=== PATIENT | female | born 1965 | race Caucasian/White ===

== ENCOUNTER 2017-06-23 06:36 | Emergency (ER) | payer MEDICARE, MEDICAID ==
[~2017-06-23] VITALS: Ht 165.1 cm; Wt 136.1 kg
[~2017-06-23 06:36] MED LIST: ALBU8.5H5 INH; AMLO2.5T PO; AMLO5TAB4 PO; ASCO10004 PO; BIOT1TAB3 PO; BUPR150T73 PO; CALC-112 PO; DULO30CA2 PO; FLUT1POW2 INH; GABA-827 PO; GLUC1CAP18 PO; HYDR25CA PO; INSU100I18 SC; INSU100V8 SQ; INSU300I SC; LISI-170 PO; OMEP-110 PO; POTA25TA4 PO; ROSU20TA PO; TRAM-28 PO; [UNRECOGNIZED DRUG - CODE] PO
[2017-06-23 06:38] VITALS: BP 106/71
[2017-06-23] MEDS ORDERED: SODIUM CHLORIDE FLUSH 10ML SYR IVF ONE (08:00)
[2017-06-23] MEDS ORDERED: SODIUM CHLORIDE 0.9% 1,000ML IVBOLUS ONE (08:30)
[2017-06-23] MEDS ORDERED: CEFTRIAXONE PMX 1GM/50ML 50 ML IV ONE (09:00)
[2017-06-23] MEDS ORDERED: SODIUM CHLORIDE 0.9% 1,000 ML IV ONE (09:00)
[2017-06-23 09:04] LABS: BLOOD UREA NITROGEN 12 mg/dL (7-18)
[2017-06-23] MEDS ORDERED: CEFTRIAXONE 1,000 MG ONE (09:08)
[2017-06-23] MEDS ORDERED: CEFTRIAXONE 1,000 MG IM ONE (09:30)
== END 2017-06-23 09:45 | disposition home or self-care (01) ==
LOC: ED 08:48
DX: L03.116 Cellulitis of left lower limb (principal); R60.0 Localized edema; I10 Essential (primary) hypertension; M79.7 Fibromyalgia; J45.909 Unspecified asthma, uncomplicated; E66.01 Morbid (severe) obesity due to excess calories; E11.9 Type 2 diabetes mellitus without complications; Z86.711 Personal history of pulmonary embolism; Z98.890 Other specified postprocedural states; Z88.8 Allergy status to other drugs, medicaments and biological substances; Z88.1 Allergy status to other antibiotic agents; Z88.0 Allergy status to penicillin; Z88.2 Allergy status to sulfonamides; Z91.030 Bee allergy status
CPT/HCPCS: 36415; 80048; 82040; 84145; 85025; 93971; 96372; 99285; J0696

== ENCOUNTER 2019-10-19 05:51 | Emergency (ER) | payer MEDICARE, MEDICAID ==
[~2019-10-19] VITALS: Ht 162.6 cm; Wt 140.0 kg
[~2019-10-19 05:51] MED LIST changes: -AMLO2.5T PO; +AMLO2.5T5 PO; +METF-163 PO; -ROSU20TA PO; +ROSU20TA2 PO; -TRAM-28 PO; +TRAM-47 PO; -[UNRECOGNIZED DRUG - CODE] PO
[2019-10-19 06:39] LABS: RAPID INFLUENZA A Negative (Negative); RAPID INFLUENZA B Negative (Negative)
[2019-10-19 06:41] LABS: BASOPHILS # (AUTO) 0.03 x10^3/uL (0-0.1); BASOPHILS % (AUTO) 0 % (0-1); EOSINOPHILS # (AUTO) 0.07 x10^3/uL (0-0.4); EOSINOPHILS % (AUTO) 1 % (1-7); LYMPHOCYTES # (AUTO) 1.42 x10^3/uL (1-3.4); LYMPHOCYTES % (AUTO) 17 % (22-44); MD NO; MEAN CORPUSCULAR HGB CONC 32.8 g/dL (32.4-35.8); MEAN CORPUSCULAR VOLUME 85.4 fL (80-100); MONOCYTES # (AUTO) 0.72 x10^3/uL (0.2-0.8); MONOCYTES % (AUTO) 9 % (2-9); NEUTROPHILS # (AUTO) 5.94 x10^3/uL (1.8-6.8); NEUTROPHILS % (AUTO) 73 % (42-75); PLATELET COUNT 121 x10^3/uL (130-400); RED BLOOD COUNT 5.27 x10^6/uL (3.82-5.3); RED CELL DISTRIBUTION WIDTH 15.1 % (9.6-15.2)
[2019-10-19 06:53] LABS: ALANINE AMINOTRANSFERASE 95 U/L (12-78); ALBUMIN 3.3 g/dL (3.4-5.0); ANION GAP 7 mmol/L (5-15); CALCIUM 8.3 mg/dL (8.5-10.1); CHLORIDE 104 mmol/L (98-107)
[2019-10-19 06:56] LABS: ALKALINE PHOSPHATASE 91 U/L (45-117); CREATININE 0.95 mg/dL (0.55-1.02); TOTAL PROTEIN 7.2 g/dL (6.4-8.2)
--- NOTE | 2019-10-19 06:56 | NUR ---
REPORT TO SAGAR MCNALLY
--- NOTE | 2019-10-19 06:58 | NUR ---
REPORT RECEIVED FROM FAHAD MCNALLY.
--- NOTE | 2019-10-19 07:10 | NUR ---
PILLOW/WARM BLANCKET PROVIDED AT THIS TIME. PT REQUESTING SUPPLEMENTAL O2. PT PLACED 1L OXY BY NC AT THIS TIME PER PT'S REQUEST.
--- NOTE | 2019-10-19 07:49 | NUR ---
PIV EST ON R AC BY THIS RN FOR CTA.
--- NOTE | 2019-10-19 07:57 | NUR ---
PT TO CT NOW.
--- NOTE | 2019-10-19 08:14 | NUR ---
PT BACK TO ROOM FROM CT AT THIS TIME.
--- NOTE | 2019-10-19 08:48 | NUR ---
PT AMB TO BR WITH STEADY GAIT.
[2019-10-19] MEDS ORDERED: DEXAMETHASONE 4 MG/ML, 1ML ONE (09:09)
[2019-10-19 09:14] VITALS: BP 126/65
--- NOTE | 2019-10-19 09:14 | NUR ---
PT MEDICATED PER EMAR. PT TOLERATED WELL.
[2019-10-19] MEDS ORDERED: OMNIPAQUE 350 MG/ML, 100ML BOTTLE ONE (09:27)
[2019-10-19] MEDS ORDERED: DEXAMETHASONE 4 MG/ML, 1ML IVPush ONE (09:30)
--- NOTE | 2019-10-19 09:41 | NUR ---
Patient given discharge instructions and they have confirmed that they understand the instructions. Patient ambulatory with steady gait.
== END 2019-10-19 09:43 | disposition home or self-care (01) ==
LOC: ED 06:31
DX: H69.82 Other specified disorders of Eustachian tube, left ear (principal); J06.9 Acute upper respiratory infection, unspecified; B34.9 Viral infection, unspecified; F17.200 Nicotine dependence, unspecified, uncomplicated; I10 Essential (primary) hypertension; E11.9 Type 2 diabetes mellitus without complications; J45.909 Unspecified asthma, uncomplicated; Z98.890 Other specified postprocedural states
CPT/HCPCS: 36415; 71045; 71275; 80053; 84145; 85025; 87400; 96374; 99284; J1100; Q9967